=== PATIENT | male | born 1990 | race Caucasian/White ===

== ENCOUNTER 2025-10-12 12:51 | Outpatient (CLI) | payer OTHER, SELFPAY ==
--- NOTE | ~2025-10-12 | MM_ITS ---
EXAMINATION: MM diagnostic anne-marie BI w alycia HISTORY: Previous testosterone use. Enlargement of breast tissue. TECHNIQUE: Craniocaudal and mediolateral oblique 3-D tomosynthesis images were obtained and synthetic 2-D images were generated. CAD analysis was submitted and interpreted. COMPARISON: None available. BREAST PARENCHYMAL COMPOSITION: Dense: The breasts are heterogeneously dense, which can obscure small masses. FINDINGS: There is significant fibroglandular tissue on both sides. No suspicious masses are seen. There are no suspicious calcifications. No unexplained architectural distortion is seen. There are no skin or nipple abnormalities identified. There is no adenopathy seen on the images submitted. IMPRESSION: The findings are consistent with bilateral gynecomastia, moderate in degree. No mammographic evidence to suggest malignancy is seen. The patient may return to screening mammography as per ACR guidelines. BI-RADS 2 - Benign. Reviewed, dictated and finalized at location A. [facility]ER
--- OUTSIDE RECORDS SUMMARY | 2025-10-12 13:07 | XMS_ITS | Clinical Summary ---
Author Organization [facility] Address [address] [facility] Attn: Epic Prelude ADT [place] [id number] Care Team Providers Care Ships Equipment Engineer Name Role Phone Unavailable Primary Care Provider Unavailabl e Medications amphetamine-de xtroamphetamin e (ADDERALL XR) 30 mg Extended Release 24 hour capsule Take 1 Capsule (30 mg) by mouth daily. Max Daily Amount: 30 mg 30 Capsule 06/16/2024 4:23 PM CDT Active azelastine (ASTELIN) 137 mcg/actuation nasal spray ADMINISTER 1 SPRAY IN EACH NOSTRIL EVERY 12 HOURS. 30 mL 4 Active amphetamine-de xtroamphetamin e (ADDERALL XR) 30 mg Extended Release 24 hour capsule Take 1 Capsule (30 mg) by mouth daily. Max Daily Amount: 30 mg 30 Capsule 10/05/2025 5:00 PM PACK WORKER SUPERVISOR 5 Active amphetamine-de xtroamphetamin e (ADDERALL XR) 30 mg Extended Release 24 hour capsule Take 1 Capsule (30 mg) by mouth daily. Max Daily Amount: 30 mg 30 Capsule 09/07/2025 7:34 PM PACK WORKER SUPERVISOR 5 10/04/20 25 Discontinu ed(Reorder ) Encounters Date Type Department Care Team Description 09/28/2025 External Device Data [facility] ABSTRACTION Provider, Abstract 09/28/2025 External Device Data [facility] ABSTRACTION Provider, Abstract 08/11/2025 External Device Data [facility] ABSTRACTION Provider, Abstract 08/11/2025 External Device Data [facility] ABSTRACTION Provider, Abstract from Last 3 Months Social History Tobacco Use Types Packs/Day Years Used Date Smoking Tobacco: Never Assessed Sex and Gender Information Value Date Recorded Sex Assigned at Not on file Legal Sex Male 4:59 PM CDT Gender Identity Not on file Sexual Orientation Not on file Plan of Treatment Health Maintenance Due Date Last Done Comments DTAP/TDAP/TD VACCINES (1 - Tdap) 2007 HEPATITIS B VACCINES (1 of 3 - 19+ 3-dose series) 02/12 INFLUENZA VACCINE (#1) 2025 HPV VACCINES (No Doses Required) Completed Insurance [employer]
--- OUTSIDE RECORDS SUMMARY | 2025-10-12 13:07 | XMS_ITS | Clinical Summary ---
Author Organization [facility] Address [address] [place] [id number] Care Team Providers Care Contract Design Agent Name Role Phone Unavailable Primary Care Provider Unavailabl e Social History Tobacco Use Types Packs/Day Years Used Date Smoking Tobacco: Never Assessed Sex and Gender Information Value Date Recorded Sex Assigned at Not on file Legal Sex Male 8:36 PM CDT Gender Identity Not on file Sexual Orientation Not on file Last Filed Vital Signs Vital Sign Reading Time Taken Comments Blood Pressure 110/60 02/19/2014 9:51 AM CDT Pulse 60 02/19/2014 9:51 AM CDT Temperature - - Respiratory Rate - - Oxygen Saturation - - Inhaled Oxygen Concentration - - Weight 81.2 kg (179 lb) 02/19/2014 9:51 AM CDT Height 167.6 cm (5' 6) 01/20/2014 2:11 PM CDT Body Mass Index 28.89 01/20/2014 2:11 PM CDT Plan of Treatment Health Maintenance Due Date Last Done Comments Annual Physical 1991 Hepatitis C 2006 DTaP, Tdap and Td Vaccines ( 1 - Tdap) 2007 Hepatitis B Vaccines (1 of 3 - 19+ 3-dose series) 2007 HPV Vaccines (1 - 3-dose SCD M series) 2015 COVID-19 Vaccine (2024-2 6 season) 2025 Influenza Adult (#1) 2025 Hepatitis A Vaccines Aged Out No long er eligible based on patient's age to complete this topic Meningococcal B Vaccine Aged Out No l onger eligible based on patient's age to complete this topic Meningococcal Vaccine Aged Out No ct sen eligible based on patient's age to complete this topic Pneumococcal Vaccine: Pediat rics (0 to 5 Years) and At-Risk Patients (6 to 49 Years) Aged Out No longer eligible b ased on patient's age to complete this topic RSV Immunizations Under 20 Months Aged Out No longer eligible based on patient's age to complete this topic
--- OUTSIDE RECORDS SUMMARY | 2025-10-12 13:07 | XMS_ITS | Encounter Summary ---
Author Organization [facility] Address [address] [place] [id number] Care Team Providers Care Medical Transcription Editor Name Role Phone Unavailable Primary Care Provider Unavailabl e Encounter Details Date Type Department Care Team (Latest Contact Info) Description 08/19/2018 Abstract [facility] , Generic Conversion, Social History Tobacco Use Types Packs/Day Years Used Date Smoking Tobacco: Never Assessed Sex and Gender Information Value Date Recorded Sex Assigned at Not on file Legal Sex Male 8:36 PM CDT Gender Identity Not on file Sexual Orientation Not on file documented as of this encounter Plan of Treatment Not on file documented as of this encounter Visit Diagnoses Not on filedocumented in this encounter
== END 2025-10-12 12:52 | disposition home or self-care (01) ==
LOC: ANHFOHIMG 12:52
PROVIDERS: PCP Family Medicine; Visit Provider Surgery
DX: N64.4 Mastodynia (principal); N62 Hypertrophy of breast
CPT/HCPCS: 77062; 77066; G0279